=== PATIENT | female | born 1955 | race Caucasian/White ===

== ENCOUNTER → 2016-12-09 | Outpatient (CLI) | payer MEDICARE ==
--- NOTE | 2016-12-09 10:01 | ST Modified Barium Swallow ---
Recommendation - Recommendations Recommendations: 1) Continue current diet. 2) Pills one at a time, pt may benefit from taking pills in puree to aid in pharyngeal transit. 3) Pt reports swallowing deficits occur after taking seroquel at night. Recommend discuss risks and benefits of medication and effects on swallowing. SUMMARY: Pt presents with WFL swallow function. Swallow observed to be safe and effective. No penetration or aspiration observed.Pill observed to stick in valleculae during first swallow with thin liquid however cleared with second swallow of thin. Pt endorsed sensation of pill sticking and clearing. Pt endorses dry mouth which, likely resulting in observed trace residuals of regular solids in valleculae, which cleared with dry swallow, pt endorsed sticking and clearing of residuals. Pt educated on recommendations. Medical Diagnoses - Medical Diagnoses Medical Diagnosis Description & ICD-10 Code(s): dysphagia Other Medical Diagnoses/Co-Morbidities: renal CA, lung CA - ICD-10 Tx Diagnosis Coding (1) Dysphagia, unspecified ICD-10 Code(s): R13.10 - DYSPHAGIA, UNSPECIFIED ST Modified Barium Swallow - General Date: 12/09/16 Referring Physician: Dr Hubbard Risks/Precautions: None Date of Onset: 12/09/06 Reason for Referral: dysphagia - History History obtained from: Patient -: Medical - Pt reports after taking seroquel at night she begins to have difficulty swallowing. Pt reports does not eat at night, however when attempting to swallow saliva can not swallow. Pt denies coughing or choking during meals, reports no recent PNAs or bronchitis, endorses globus sensation in mid chest. Pt states that globus sensation is painful and at times results in pt throwing up food. PMHx: pt reports neck surgery in 2007, endoscopy in 2007 - WNL, tracheostomy as a baby, renal CA, lung CA, and right kidney removal. Medications: levothyroxine, atenolol, oxycodone, quetiapine, gralise, strattera , buproprion, vyvanse, escitalopram, votrient, metoclopramide PRN, prochlorperazine PRN, ondansetron PRN, ammonium, wal-itin Allergies: NKA - Functional Status Prior Functional Status: INDEPENDENT: feeding Current Functional Limitations: feeding - Subjective Patient/caregiver goal(s): safe swallow, r/o aspiration Cognitive-Linguistic Function: WNL Speech Intelligibility: WNL Current Nutritional Means: PO Current PO diet: Regular Current symptoms: c/o Globus sensation - mid chest, other - difficulty swallowing at night after taking seroquel Pain: 0/5 - Objective Assessment: Upright, Left Lateral - Food Trials Used Food trials used: Thin liquids, Pureed, Regular The patient: Was Able to Self Feed - Oral-Motor Skills Dentition: Dentures-Upper, Dentures-Lower, Edentulous Velo-pharyngeal function: Unremarkable Laryngeal Function: Volitional Cough, Volitional Swallow - Assessment Oral prep: Normal Labial closure: Adequate Leakage: None Mastication: Adequate Lingual Movement: Normal Oral stage: Normal for this Procedure - Pharyngeal Stage Initiation of Pharyngeal Stage Reflex: Normal Decreased laryngeal elevation: No Reduced Velopharyngeal Closure: no Reduced pressure generation: No reduced tongue-based retraction: No Pre-swallow pooling in valleculae: None Pre-Swallow pooling in pyriforms: None Reduced Thyro-Hyoid approximation: No Reduced epiglottic excursion: No Reduced pharyngeal peristalsis/contraction: No Post-swallow residulas vallecular: Mild - trace on regular, cleared with pt initiated dry swallow-residuals possibly due to reported dry mouth Post-Swallow residuals in pyriforms: None Reduced Cricopharyngeal opening: No - Fall Risk Assessment Medications/Conditions that increase fall risks include: Antidepressants, sedatives, anti-arrhythmic, diuretic, benzodiazipenes, neuroleptics. BP regulation problems, cardiac problems, balance or gait deficits, neurological problems. Is patient considered at risk for falls: no Fall Risk Actions Taken: No action needed - Behavioral Observations During evaluation process patient: was pleasant, was cooperative, able to answer questions, provided medical history - Treatment / Educational Needs: Treatment/Education Needs: Treatment consisted of patient education on the role of the Speech Pathologist. Patient's plan of care and golas were communicated as well as scheduling and attendance policies. Recommendations for initial home program were shared. Patient demonstrated understanding and verbalized agreement. - Impression/Summary Laryngeal Penetration: No Tracheal Aspiration: no Patient presents with: Normal swallow at eval - safe and effective swallow observed Risk of Aspiration: Minimal - Recommendations NPO: no Solid diet recommendations: Regular Liquid Diet Modification: Thin Strict aspiration precautions: No Pt/Family education and followup with MD: Yes Dysphagia therapy with ANTIQUE REFINISHER: no Recommended techniques: Fully Upright During Meal Supervision: Independent Information, Precautions and Recommendations: Patient (Verbal) - Time Total Time: 20 - Plan of Care Strategies to optimize patient understanding include:: ongoing assessment of educational needs, implementation of educational strategies, and re-education. - - -: Thank you for the opportunity to work with this patient and his/her family. Should you have any questions about this patient's plan or progress, I can be reached at [phone]. Charge G Code? - - -: Yes ST [facility] Impairment Category - Rationale Based On Rationale Based On: Clin Find., Obj Measures - Swallowing Current G8996: CI 1-19% Impaired Goal G8997: CI 1-19% Impaired Discharge G8998: CI 1-19% Impaired
== END ==
LOC: RAD 08:30
PROVIDERS: ATTEND Internal Medicine Pulmonary Disease
DX: R13.10 Dysphagia, unspecified (principal)
CPT/HCPCS: 74230; 92611; G8996; G8997; G8998

== ENCOUNTER → 2017-01-06 | Outpatient (CLI) | payer MEDICARE | LOC: RAD 12:43 | PROVIDERS: ATTEND Internal Medicine | DX: I26.99 Other pulmonary embolism without acute cor pulmonale (principal); R04.2 Hemoptysis | CPT/HCPCS: 71275 ==

== ENCOUNTER → 2017-01-27 | Outpatient (CLI) | payer MEDICARE | LOC: OD 15:13 | PROVIDERS: ATTEND Family Medicine | DX: M79.645 Pain in left finger(s) (principal); M25.572 Pain in left ankle and joints of left foot ==

== ENCOUNTER → 2017-04-06 | Outpatient (CLI) | payer MEDICARE, OTHER | LOC: RAD 09:40 | PROVIDERS: ATTEND Internal Medicine | DX: C18.7 Malignant neoplasm of sigmoid colon (principal) | CPT/HCPCS: 71260 ==

== ENCOUNTER 2017-07-13 07:30 | Emergency (ER) | payer MEDICARE, MEDICAID ==
[2017-07-13 09:14] LABS: ABSOLUTE EOSINOPHILS # (AUTO) 0.1 10^3/uL (0.0-0.6); ABSOLUTE LYMPHOCYTES (AUTO) 1.9 10^3/uL (0.5-4.7); ABSOLUTE MONOCYTES (AUTO) 0.6 10^3/uL (0.1-1.4); ABSOLUTE NEUT (AUTO) 3.8 10^3/uL (1.7-8.2); BASOPHILS % (AUTO) 0.3 % (0-2); HEMATOCRIT 38.7 % (36.0-47.0); HEMOGLOBIN 13.1 g/dL (12.0-15.5); HGB HCT DIFFERENCE 0.6; LYMPHOCYTES % (AUTO) 28.9 % (13-45); MEAN CORPUSCULAR HEMOGLOBIN 31.4 pg (27.0-33.4); MEAN CORPUSCULAR HGB CONC 33.8 g/dL (32.0-36.0); MEAN CORPUSCULAR VOLUME 93 fl (80-97); MONOCYTES % (AUTO) 9.8 % (3-13); RED BLOOD COUNT 4.16 10^6/uL (3.72-5.28); RED CELL DISTRIBUTION WIDTH 14.8 % (11.5-14.0); WHITE BLOOD COUNT 6.4 10^3/uL (4.0-10.5)
[2017-07-13 09:22] LABS: APPEARANCE,URINE SLIGHTLY-CLOUDY; BILIRUBIN,URINE NEGATIVE (NEGATIVE); GLUCOSE, URINE NEGATIVE (NEGATIVE); KETONES,URINE NEGATIVE (NEGATIVE); LEUKOCYTE ESTERASE,URINE NEGATIVE (NEGATIVE); NITRITE,URINE NEGATIVE (NEGATIVE); PROTEIN,URINE NEGATIVE (NEGATIVE); URINE SPECIFIC GRAVITY 1.028; UROBILINOGEN,URINE NEGATIVE mg/dL (<2.0)
[2017-07-13 09:32] LABS: ALANINE AMINOTRANSFERASE 30 U/L (9-52); ALBUMIN 3.3 g/dL (3.5-5.0); ALKALINE PHOSPHATASE 64 U/L (38-126); ANION GAP 11 (5-19); ASPARTATE AMINO TRANSFERASE 42 U/L (14-36); BILIRUBIN,DIRECT 0.4 mg/dL (0.0-0.4); BILIRUBIN,TOTAL 0.4 mg/dL (0.2-1.3); BLOOD UREA NITROGEN 16 mg/dL (7-20); CALCIUM 8.8 mg/dL (8.4-10.2); CARBON DIOXIDE 21 mmol/L (22-30); CHLORIDE 110 mmol/L (98-107); CREATINE KINASE 72 U/L (30-135); CREATININE RESULT 0.96 mg/dL (0.52-1.25); GLUCOSE 122 mg/dL (75-110); POTASSIUM 3.8 mmol/L (3.6-5.0); SODIUM 141.6 mmol/L (137-145); TOTAL PROTEIN 5.8 g/dL (6.3-8.2)
[2017-07-13 09:43] LABS: CREATINE KINASE MB 2.31 ng/mL (<4.55)
[2017-07-13 09:44] LABS: TROPONIN I < 0.012 ng/mL
--- NOTE | 2017-07-13 10:33 | RADIOLOGY REPORT (SQ) ---
EXAM DESCRIPTION: CTA CHEST COMPLETED DATE/TIME: 07/13/2017 10:07 am REASON FOR STUDY: metastatic ca, sob COMPARISON: 04/06/2017 TECHNIQUE: CT scan of the chest performed using helical scanning technique with dynamic intravenous contrast injection. Images reviewed with lung, soft tissue and bone windows. Reconstructed coronal and sagittal MPR images reviewed. Additional 3 dimensional post-processing performed to develop Maximal Intensity Projection images ([place] P). All images stored on PACS. All CT scanners at this facility use dose modulation, iterative reconstruction, and/or weight based d osing when appropriate to reduce radiation dose to as low as reasonably achievable (ALARA). [facility]: Dose Right [facility]: CareDose [facility]: Dose Right [facility]: Teradose 4D [facility]: [employer] CONTRAST TYPE AND DOSE: contrast/concentration: Isovue 370.00 mg/ml; Total Contrast Delivered: 60.0 ml; Total Saline Delivered: 100.0 ml RENAL FUNCTION: Creatinine 0.96 RADIATION DOSE: Up-to-date CT equipment and radiation dose reduction techniques were employed. CTDIv ol: 14.3 - 18.2 mGy. DLP: 2314 mGy-cm. . LIMITATIONS: None. FINDINGS: LUNGS AND PLEURA: New severe bolus emphysematous changes in the left upper lobe. Relative ly stable metastatic foci in the right upper lobe and left lower lobe. Minimal stable nodularity is also seen in the right middle lobe which may be inflammatory. AORTA AND GREAT VESSELS: No aneurysm or dissection. HEART: No pericardial effusion. PULMONARY ARTERIES: No emboli visualized in the main pulmonary arteries or the segmental branches. T here is some narrowing of the left upper lobe pulmonary artery is related to hilar adenopathy. HILAR AND MEDIASTINAL STRUCTURES: Worsening mediastinal and hilar adenopathy. HARDWARE: None in the chest. UPPER ABDOMEN: See abdomen CT report. THYROID AND OTHER SOFT TISSUES: No masses. No adenopathy. BONES: No acute or significant finding. 3D MIPS: Confirm above findings. OTHER: No other significant finding. IMPRESSION: 1. No evidence of pulmonary embolus. 2. New severe bullous edematous changes in the left upper lobe. 3. Stable lung metastases. 4. Worsening mediastinal and hilar adenopathy with associated narrowing of the left upper lobe pulmo nary arteries. TECHNICAL DOCUMENTATION: JOB ID: [id number] Quality ID # [id number]: Final reports with documentation of one or more dose reduction techniques (e.g., Au tomated exposure control, adjustment of the mA and/or kV according to patient size, use of iterative reconstruction technique) 2010 [employer]- All Rights Reserved
--- NOTE | 2017-07-13 10:36 | RADIOLOGY REPORT (SQ) ---
EXAM DESCRIPTION: CT ABD/PELVIS WITH IV ONLY COMPLETED DATE/TIME: 07/13/2017 10:07 am REASON FOR STUDY: metastatic kidney ca COMPARISON: None. TECHNIQUE: CT scan of the abdomen and pelvis performed using helical scanning technique with dynamic intravenous contrast injection. No oral contrast. Images reviewed with lung, soft tissue, and bone windows. Reconstructed coronal and sagittal MPR images reviewed. Delayed images for evaluation of the urinary system also acquired. All images stored on PACS. All CT scanners at this facility use dose modulation, iterative reconstruction, and/or weight based d osing when appropriate to reduce radiation dose to as low as reasonably achievable (ALARA). [facility]: Dose Right [facility]: CareDose [facility]: Dose Right [facility]: Teradose 4D [facility]: [employer] CONTRAST TYPE AND DOSE: See separate chest CT report. RENAL FUNCTION: BUN 16 creatinine 1.0 RADIATION DOSE: . LIMITATIONS: Artifact from lower lumbar spinal fusion. FINDINGS: LOWER CHEST: See separate report of the CT of the chest. LIVER: Normal size. No masses. No dilated ducts. SPLEEN: Old granulomatous disease. PANCREAS: No masses. No significant calcifications. No adjacent inflammation or peripancreatic fluid collections. Pancreatic duct not dilated. GALLBLADDER: No identified stones by CT criteria. No inflammatory changes to suggest cholecystitis. ADRENAL GLANDS: No significant masses or asymmetry. RIGHT KIDNEY AND URETER: Surgically absent. LEFT KIDNEY AND URETER: No solid masses. 2 mm stone lower pole. No hydronephrosis or hydroureter. AORTA AND VESSELS: No aneurysm. RETROPERITONEUM: No retroperitoneal adenopathy, hemorrhage or masses. BOWEL AND PERITONEAL CAVITY: No masses or inflammatory changes. No free fluid or peritoneal masses. APPENDIX: Surgically absent. PELVIS: No mass. No free fluid. Normal bladder. ABDOMINAL WALL: No masses. No hernias. BONES: No acute findings. OTHER: No other significant finding. IMPRESSION: 1. Nonobstructing stone left kidney status post right nephrectomy. 2. No acute findings in the abdomen or pelvis. TECHNICAL DOCUMENTATION: JOB ID: [id number] Quality ID # [id number]: Final reports with documentation of one or more dose reduction techniques (e.g., Au tomated exposure control, adjustment of the mA and/or kV according to patient size, use of iterative reconstruction technique) 2010 [employer]- All Rights Reserved
[2017-07-13] MEDS ORDERED: LORAZEPAM INJ 2 MG/1 ML VIAL IV ONE (11:05)
--- NOTE | 2017-07-13 11:07 | ER Document Report ---
ED General - General Chief Complaint: Breathing Difficulty Stated Complaint: DIFFICULT BREATHING Time Seen by Provider: 07/13/17 07:48 Mode of Arrival: Ambulatory Information source: Patient Notes: 61-year-old female history of lung CA who is on the recent flights presents with complaints of shortness of breath. Patient notes the shortness breath has been ongoing for a few days denies any fevers or chills denies any nausea or vomiting. Patient notes she is extremely anxious. Patient went to the emergency department 2 days ago but refused to have a CTA performed at that time because she was supposed to have a CT done here and wanted her physicians have access to the imaging. Patient denies any productive cough patient notes she is extremely anxious recently TRAVEL OUTSIDE OF THE [place] IN LAST 30 DAYS: No - HPI Onset: Other - 2 day duration Onset/Duration: Persistent Quality of pain: No pain Severity: Mild Pain Level: Denies Associated symptoms: Shortness of breath Exacerbated by: Denies Relieved by: Denies Similar symptoms previously: Yes Recently seen / treated by doctor: Yes - Related Data Allergies/Adverse Reactions: codeine Allergy (Verified 07/13/17 07:36) erythromycin base Allergy (Verified 07/13/17 07:36) Penicillins Allergy (Verified 07/13/17 07:36) Home Medications: Current Home Medications Albuterol Sulfate [Ventolin Hfa] 2 puff NEB PRN PRN 07/13/17 [History] Atenolol [Atenolol] 50 mg PO DAILY 07/13/17 [History] Atomoxetine HCl [Strattera] 80 mg PO DAILY 07/13/17 [History] Benzonatate 200 mg PO TID 07/13/17 [History] Bupropion HCl [Bupropion HCl ER] 200 mg PO DAILY 07/13/17 [History] Escitalopram Oxalate 10 mg PO DAILY 07/13/17 [History] Escitalopram Oxalate 10 mg PO DAILY 07/13/17 [History] Gabapentin [Gralise] 1,200 mg PO DAILY 07/13/17 [History] Glycopyrrolate/Formoterol Fum [Bevespi Aerosphere Inhaler] 9 mcg NEB TID [History] Levothyroxine Sodium 200 mcg PO DAILY 07/13/17 [History] Lisdexamfetamine Dimesylate [Vyvanse] 70 mg PO DAILY 07/13/17 [History] Loratadine 10 mg PO DAILY 07/13/17 [History] Meloxicam 15 mg PO DAILY 07/13/17 [History] Metoclopramide HCl 5 mg PO PRN PRN 07/13/17 [History] Ondansetron [Ondansetron Odt] 8 mg PO PRN PRN 07/13/17 [History] Pazopanib HCl [Votrient] 800 mg PO DAILY 07/13/17 [History] Quetiapine Fumarate [Quetiapine Fumarate ER] 100 mg PO DAILY 07/13/17 [History] Past Medical History - Social History Smoking Status: Former Smoker Cigarette use (# per day): No Chew tobacco use (# tins/day): No Smoking Education Provided: No Frequency of alcohol use: None Drug Abuse: None Family History: Reviewed & Not Pertinent Renal/ Medical History: Denies: Hx Peritoneal Dialysis Review of Systems - Review of Systems Notes: REVIEW OF SYSTEMS: CONSTITUTIONAL : Denies fever, chills, or sweats. Denies recent illness. EENT: Denies eye, ear, throat, or mouth pain or symptoms. Denies nasal or sinus congestion or discharge. Denies throat, tongue, or mouth swelling or difficulty swallowing. CARDIOVASCULAR: Denies chest pain. Denies palpitations or racing or irregular heart beat. Denies ankle edema. RESPIRATORY: Admits to shortness of breath difficulty breathing. GASTROINTESTINAL: Denies abdominal pain or distention. Denies nausea, vomiting , or diarrhea. Denies blood in vomitus, stools, or per rectum. Denies black, tarry stools. Denies constipation. GENITOURINARY: Denies difficulty urinating, painful urination, burning, frequency, blood in urine, or discharge. FEMALE GENITOURINARY: Denies vaginal bleeding, heavy or abnormal periods, irregular periods. Denies vaginal discharge or odor. MUSCULOSKELETAL: Denies back or neck pain or stiffness. Denies joint pain or swelling. SKIN: Denies rash, lesions or sores. HEMATOLOGIC : Denies easy bruising or bleeding. LYMPHATIC: Denies swollen, enlarged glands. NEUROLOGICAL: Denies confusion or altered mental status. Denies passing out or loss of consciousness. Denies dizziness or lightheadedness. Denies headache. Denies weakness or paralysis or loss of use of either side. Denies problems with gait or speech. Denies sensory loss, numbness, or tingling. Denies seizures. PSYCHIATRIC: Admits to anxiety ALL OTHER SYSTEMS REVIEWED AND NEGATIVE. PHYSICAL EXAMINATION: GENERAL: Well-appearing, well-nourished and in no acute distress. HEAD: Atraumatic, normocephalic. EYES: Pupils equal round and reactive to light, extraocular movements intact, conjunctiva are normal. ENT: Nares patent, oropharynx clear without exudates. Moist mucous membranes. NECK: Normal range of motion, supple without lymphadenopathy LUNGS: Breath sounds clear to auscultation bilaterally and equal. No wheezes rales or rhonchi. HEART: Regular rate and rhythm without murmurs ABDOMEN: Soft, nontender, nondistended abdomen. No guarding, no rebound. No masses appreciated. Female : deferred Musculoskeletal: Normal range of motion, no pitting or edema. No cyanosis. NEUROLOGICAL: Cranial nerves grossly intact. Normal speech, normal gait. Normal sensory, motor exams PSYCH: Extremely anxious rapid speech SKIN: Warm, Dry, normal turgor, no rashes or lesions noted. Dictation was performed using [employer] voice recognition software Physical Exam - Vital signs Vitals: Temp Pulse Resp BP Pulse Ox 98.5 F 83 21 H 145/97 H 94 07/13/17 07:31 07/13/17 07:31 07/13/17 07:31 07/13/17 07:31 07/13/17 07:31 Course - Re-evaluation Re-evalutation: 07/13/17 14:56 Physical examination did not note any acute abnormality except for patient being quite anxious. I am extremely concerned about a pulmonary emboli therefore an emergent CT was performed as well as a CT of the abdomen pelvis at the patient's request. There is no change in her metastasis, there is no pulmonary emboli noted. I believe the patient's symptoms may be secondary to anxiety at this point. She will be given Ativan and is otherwise well- appearing no distress Patient has been instructed to follow-up with her physician immediately for reevaluation or to return if there are any other concerns After performing a Medical Screening Examination, I estimate there is LOW risk for RUPTURED ESOPHAGUS, PNEUMOTHORAX, PULMONARY EMBOLISM, ACUTE CORONARY SYNDROME, OR THORACIC AORTIC DISSECTION, thus I consider the discharge disposition reasonable. I have reevaluated this patient multiple times and no significant life threatening changes are noted. The patient and I have discussed the diagnosis and risks, and we agree with discharging home with close follow-up. We also discussed returning to the Emergency Department immediately if new or worsening symptoms occur. We have discussed the symptoms which are most concerning (e.g., bloody sputum, worsening pain or shortness of breath) that necessitate immediate return. - Vital Signs Vital signs: Temp Pulse Resp BP Pulse Ox 98.5 F 83 17 132/86 H 93 07/13/17 07:31 07/13/17 07:31 07/13/17 11:23 07/13/17 11:23 07/13/17 11:23 - Laboratory Result Diagrams: 07/13/17 08:45 07/13/17 08:45 Laboratory results interpreted by me: 07/13/17 07/13/17 08:45 08:45 RDW 14.8 H Chloride 110 H Carbon Dioxide 21 L Est GFR (Non-Af Amer) 59 L Glucose 122 H AST 42 H Total Protein 5.8 L Albumin 3.3 L - Diagnostic Test Radiology reviewed: Image reviewed, Reports reviewed - No pulmonary emboli - EKG Interpretation by Me EKG shows normal: Sinus rhythm, [place], Intervals, QRS Complexes Discharge - Discharge Clinical Impression: Anxiety, SOB (shortness of breath) Lung cancer Qualifiers: Laterality: unspecified laterality Lung location: unspecified part of lung Qualified Code(s): C34.90 - Malignant neoplasm of unspecified part of unspecified bronchus or lung Condition: Stable Disposition: HOME, SELF-CARE Instructions: Dyspnea, Nonspecific ([facility]) Prescriptions: Lorazepam [Ativan 1 mg Tablet] 1 mg PO Q4 PRN #20 tab PRN Reason: Referrals: LISHA SEGOVIA DO [Primary Care Provider] - Follow up tomorrow
[2017-07-13 11:36] VITALS: BP 132/86
--- NOTE | 2017-07-13 12:37 | EKG REPORT ---
SEVERITY:- ABNORMAL ECG - SINUS RHYTHM ABNRM R PROG, CONSIDER ASMI OR LEAD PLACEMENT NONSPECIFIC T ABNORMALITIES, INFERIOR LEADS : Confirmed by: Costa Castellanos MD 13-Jul-2017 12:36:23
== END 2017-07-13 11:39 | disposition home or self-care (01) ==
LOC: ER 07:30
DX: C34.90 Malignant neoplasm of unspecified part of unspecified bronchus or lung (principal); F41.9 Anxiety disorder, unspecified; R06.02 Shortness of breath; Z87.891 Personal history of nicotine dependence; Z79.899 Other long term (current) drug therapy
CPT/HCPCS: 93005; 99285; 96374; 36415; 87040; 82553; 82550; 85025; 81025; 80053; 81001; 84484; 83880; 71275; 74177; 93010; J2060

== ENCOUNTER 2017-07-21 11:07 | Outpatient (CLI) | payer MEDICARE, MEDICAID ==
[2017-07-21] MEDS ORDERED: NORMAL SALINE 250 ML IV PRN (12:40)
[2017-07-21] MEDS ORDERED: NIVOLUMAB 200 MG, NIVOLUMAB 40 MG in NORMAL SALINE 100 ML IV PRN (12:44)
[2017-07-21 14:25] VITALS: BP 105/65
== END 2017-07-21 16:01 | disposition home or self-care (01) ==
LOC: II 11:07 → 5TH 14:11 → II 16:01
PROVIDERS: ATTEND Internal Medicine
PROC: 3E0330M Introduction of Antineoplastic, Monoclonal Antibody, into Peripheral Vein, Percutaneous Approach (ICD-10-PCS; principal; 2017-07-21)
DX: Z51.11 Encounter for antineoplastic chemotherapy (principal); C64.1 Malignant neoplasm of right kidney, except renal pelvis
CPT/HCPCS: 96413; 70553; A9577; J9299 ×2

== ENCOUNTER → 2017-07-21 | Outpatient (CLI) | payer MEDICAID, MEDICARE ==
--- NOTE | 2017-07-21 15:56 | RADIOLOGY REPORT (SQ) ---
EXAM DESCRIPTION: MRI HEAD COMBO COMPLETED DATE/TIME: 07/21/2017 11:01 am REASON FOR STUDY: KIDNEY CA (C64.1) C64.1 MALIGNANT NEOPLASM OF RIGHT KIDNEY, EXCEPT RENAL PELVI COMPARISON: CT chest abdomen and pelvis 07/13/2017, CT chest 04/06/2017, and 01/06/2017 TECHNIQUE: Multiplanar imaging includes noncontrasted T1, T2, FLAIR, diffusion with ADC map and post gadolinium contrast T1 sequences. Images stored on PACS. CONTRAST TYPE AND DOSE: 15 mL Multihance. RENAL FUNCTION: GFR > 60. LIMITATIONS: None. FINDINGS: ANATOMY: Pituitary fossa normal. On axial T2 image 11, a 4 mm aneurysm projects off the l eft parasellar carotid medially. This requires further evaluation with [place] MRA exam. Dr. Mcnulty notified of this finding, 1545 hours 07/21/2017. There is a benign venous angioma in the righ t occipital white matter, of no clinical significance CSF SPACES: Normal in size and contour. No hemorrhage. CEREBRUM: Sulci and gyri normal in size and contour. Normal white matter signal on FLAIR imaging. No evidence of hemorrhage, mass, or extraaxial fluid collection. No abnormal enhancement post contrast. POSTERIOR FOSSA: No signal alteration. No hemorrhage. No edema, masses, or mass effect. Internal soraida tory canals, cerebellopontine angles, mastoids normal. No enhancing lesions. No abnormal enhancement post contrast. DIFFUSION IMAGING: Negative for acute or subacute infarction. ORBITS: No masses. Globes normal. PARANASAL SINUSES: No fluid levels. Mucosa normal. OTHER: No other significant finding. 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 EVIDENCE OF ACUTE STROKE: NO. TECHNICAL DOCUMENTATION: JOB ID: [id number]- All Rights Reserved
== END ==
LOC: RAD 09:12
PROVIDERS: ATTEND Internal Medicine
DX: C64.1 Malignant neoplasm of right kidney, except renal pelvis (principal)
CPT/HCPCS: 70553; A9577

== ENCOUNTER 2017-07-23 19:31 | Emergency (ER) | payer MEDICARE, MEDICAID ==
[2017-07-23] MEDS ORDERED: METHYLPREDNISOLONE INJ 125 MG/2 ML SDV IV ONE (19:39)
[2017-07-23] MEDS ORDERED: IPRATROPIUM/ALBUTEROL 0.5-2.5 MG/3 ML AMPUL NEB ONE (19:39)
[2017-07-23] MEDS ORDERED: ALBUTEROL SULFATE 0.083% NEB 2.5 MG/3 ML AMPUL NEB SCH (19:54)
[2017-07-23 20:05] LABS: ABSOLUTE EOSINOPHILS # (AUTO) 0.3 10^3/uL (0.0-0.6); ABSOLUTE LYMPHOCYTES (AUTO) 1.3 10^3/uL (0.5-4.7); ABSOLUTE MONOCYTES (AUTO) 0.8 10^3/uL (0.1-1.4); ABSOLUTE NEUT (AUTO) 5.1 10^3/uL (1.7-8.2); BASOPHILS % (AUTO) 0.5 % (0-2); EOSINOPHILS % (AUTO) 3.6 % (0-6); HEMOGLOBIN 13.6 g/dL (12.0-15.5); HGB HCT DIFFERENCE -1.2; LYMPHOCYTES % (AUTO) 17.1 % (13-45); MEAN CORPUSCULAR HEMOGLOBIN 30.6 pg (27.0-33.4); MEAN CORPUSCULAR HGB CONC 32.3 g/dL (32.0-36.0); MEAN CORPUSCULAR VOLUME 95 fl (80-97); MONOCYTES % (AUTO) 10.9 % (3-13); RED BLOOD COUNT 4.43 10^6/uL (3.72-5.28); SEGMENTED NEUTROPHILS % (AUTO) 67.9 % (42-78); WHITE BLOOD COUNT 7.5 10^3/uL (4.0-10.5)
[2017-07-23 20:22] LABS: ALANINE AMINOTRANSFERASE 25 U/L (9-52); ALBUMIN 3.7 g/dL (3.5-5.0); ALKALINE PHOSPHATASE 65 U/L (38-126); ANION GAP 9 (5-19); ASPARTATE AMINO TRANSFERASE 44 U/L (14-36); BILIRUBIN,DIRECT 0.4 mg/dL (0.0-0.4); BILIRUBIN,TOTAL 0.5 mg/dL (0.2-1.3); BLOOD UREA NITROGEN 15 mg/dL (7-20); CALCIUM 9.5 mg/dL (8.4-10.2); CARBON DIOXIDE 31 mmol/L (22-30); CHLORIDE 100 mmol/L (98-107); CREATINE KINASE 25 U/L (30-135); CREATININE RESULT 0.83 mg/dL (0.52-1.25); GLUCOSE 119 mg/dL (75-110); POTASSIUM 4.9 mmol/L (3.6-5.0); SODIUM 139.8 mmol/L (137-145); TOTAL PROTEIN 6.6 g/dL (6.3-8.2)
[2017-07-23] MEDS ORDERED: DIAZEPAM INJ 10 MG/2 ML DISP.SYRIN IV ONE (20:26)
--- NOTE | 2017-07-23 20:27 | ER Document Report ---
ED General - General Chief Complaint: Shortness Of Breath Stated Complaint: CHEST PAIN Time Seen by Provider: 07/23/17 19:51 Notes: Patient is a unfortunate 61-year-old female with a history of an unspecified renal cancer with metastasis to the lungs who presents with 2 weeks of shortness of breath unchanged today. Patient was seen in the emergency department on the 14th of this month and had a CTA of her chest abdomen pelvis at that time she did not demonstrate any acute pulmonary emboli but did note new emphysematous changes. States that since that time she has been started on supplemental home oxygen which she states does not always resolve her shortness of breath. Notes that her episodes of shortness of breath are worse at night and often wake her up from sleep. She has not noted that anything seems to improve or worsen her shortness of breath other than anxiety which she states does seem to worsen it. She has been following with her oncologist regarding these concerns. At time of my assessment she does admit to feeling severely anxious but states that her work of breathing is at baseline. She denies any chest pain. No hemoptysis, unilateral leg swelling or syncope. TRAVEL OUTSIDE OF THE [place] IN LAST 30 DAYS: No - Related Data Allergies/Adverse Reactions: codeine Allergy (Verified 07/13/17 07:36) erythromycin base Allergy (Verified 07/13/17 07:36) Penicillins Allergy (Verified 07/13/17 07:36) Past Medical History - General Information source: Patient - Social History Smoking Status: Former Smoker Frequency of alcohol use: None Drug Abuse: None Lives with: Family Family History: Reviewed & Not Pertinent Renal/ Medical History: Denies: Hx Peritoneal Dialysis Review of Systems - Review of Systems Notes: Constitutional: Negative for fever. HENT: Negative for sore throat. Eyes: Negative for visual changes. Cardiovascular: Negative for chest pain. Respiratory: Positive for shortness of breath. Gastrointestinal: Negative for abdominal pain, vomiting or diarrhea. Genitourinary: Negative for dysuria. Musculoskeletal: Negative for back pain. Skin: Negative for rash. Neurological: Negative for headaches, weakness or numbness. 10 point ROS negative except as marked above and in HPI. Physical Exam - Vital signs Vitals: Resp Pulse Ox 23 H 95 07/23/17 20:05 07/23/17 20:05 Interpretation: Tachypneic Notes: PHYSICAL EXAMINATION: GENERAL: Appears chronically ill, older than stated age but in no acute distress HEAD: Atraumatic, normocephalic. EYES: Pupils equal round and reactive to light, extraocular movements intact, sclera anicteric, conjunctiva are normal. ENT: nares patent, oropharynx clear without exudates. Moist mucous membranes. NECK: Normal range of motion, supple without lymphadenopathy LUNGS: Breath sounds clear to auscultation bilaterally and equal. No wheezes rales or rhonchi. HEART: Regular rate and rhythm without murmurs ABDOMEN: Soft, nontender, normoactive bowel sounds. No guarding, no rebound. No masses appreciated. EXTREMITIES: Normal range of motion, no pitting or edema. No cyanosis. NEUROLOGICAL: No focal neurological deficits. Moves all extremities spontaneously and on command. PSYCH: Normal mood, normal affect. SKIN: Warm, Dry, normal turgor, no rashes or lesions noted. Course - Re-evaluation Re-evalutation: 07/23/17 20:26 Patient with a unfortunate history of metastatic kidney cancer to the lungs with bilateral no metastases currently on up to go who presents with 2 weeks of continuous shortness of breath unchanged today. Patient was seen on the 14 of this month, had a CT of her chest and at that time which did not demonstrate any evidence of acute pulmonary emboli. She states her symptoms are no different today than at that time I do not believe repeat CT imaging is appropriate at this time given that the study was performed 10 days ago. She denies any significant chest pain her clinical history is likewise not consistent with ACS, acute thoracic aortic dissection or aneurysmal rupture. Patient does admit to feeling severely anxious and did have improvement of her symptoms and her most recent visit to the emergency department with IV lorazepam. Will obtain chest x-ray, basic labs, provide anxiolysis and reassess 07/23/17 22:14 Patient's symptoms have resolved after receiving Valium. Chest x-ray unchanged. Labs unremarkable. At this time will discharge with return precautions and follow-up recommendations. Verbal discharge instructions given a the bedside and opportunity for questions given. Medication warnings reviewed. Patient is in agreement with this plan and has verbalized understanding of return precautions and the need for primary care follow-up in the next 24-72 hours. - Vital Signs Vital signs: Temp Pulse Resp BP Pulse Ox 95 18 126/99 H 98 07/23/17 23:54 07/23/17 23:54 07/23/17 23:54 07/23/17 23:54 - Laboratory Result Diagrams: 07/23/17 19:50 07/23/17 19:50 Laboratory results interpreted by me: 07/23/17 07/23/17 19:50 19:50 RDW 15.0 H Carbon Dioxide 31 H Glucose 119 H AST 44 H Creatine Kinase 25 L - Diagnostic Test Radiology reviewed: Image reviewed, Reports reviewed Radiology results interpreted by me: 07/23/17 22:15 Chest x-ray: No acute changes. Findings consistent with emphysema. - EKG Interpretation by Me Additional EKG results interpreted by me: 07/24/17 03:22 Normal sinus rhythm. Rate 96. No ST elevations or depressions. QTC is 440. Discharge - Discharge Clinical Impression: Shortness of breath Condition: Good Disposition: HOME, SELF-CARE Additional Instructions: Discontinue the Ativan. You may start Valium 5 mg at night in addition to the Seroquel you take. Your labs and chest x-ray are unchanged from her prior visit. Please follow-up with your primary doctor regarding today's concerns. Return to the emergency department for worsening shortness of breath, chest pain , passing out, or any other symptoms that are worrisome to you. Prescriptions: Diazepam [Valium 5 mg Tablet] 5 mg PO QHS PRN #15 tablet PRN Reason: Referrals: LISHA SEGOVIA DO [Primary Care Provider] - Follow up as needed
[2017-07-23 20:34] LABS: TROPONIN I < 0.012 ng/mL
--- NOTE | 2017-07-23 21:23 | RADIOLOGY REPORT (SQ) ---
EXAM DESCRIPTION: CHEST SINGLE VIEW COMPLETED DATE/TIME: 07/23/2017 8:31 pm REASON FOR STUDY: shortness of breath COMPARISON: 07/13/2017 EXAM PARAMETERS: NUMBER OF VIEWS: One view. TECHNIQUE: Single frontal radiographic view of the chest acquired. RADIATION DOSE: NA LIMITATIONS: None. FINDINGS: LUNGS AND PLEURA: Similar appearance of the left lung with large bullous emphysematous nicole nges in the upper lobe. Similar left basilar 4.7 cm mass. Trace right pleural effusion. Right lung appears otherwise clear. No left pleural effusion or pneumothorax. MEDIASTINUM AND HILAR STRUCTURES: Stable left hilar fullness. HEART AND VASCULAR STRUCTURES: Stable. BONES: No acute findings. HARDWARE: None in the chest. OTHER: No other significant finding. IMPRESSION: Similar appearance of the left lung with large bullous emphysematous changes in the uppe r lobe. Similar left basilar 4.7 cm mass. Trace right pleural effusion. TECHNICAL DOCUMENTATION: JOB ID: [id number]
[2017-07-23 21:29] LABS: APPEARANCE,URINE CLEAR; BILIRUBIN,URINE NEGATIVE (NEGATIVE); GLUCOSE, URINE NEGATIVE (NEGATIVE); KETONES,URINE NEGATIVE (NEGATIVE); LEUKOCYTE ESTERASE,URINE NEGATIVE (NEGATIVE); NITRITE,URINE NEGATIVE (NEGATIVE); PROTEIN,URINE NEGATIVE (NEGATIVE); URINE SPECIFIC GRAVITY 1.011; UROBILINOGEN,URINE NEGATIVE mg/dL (<2.0)
--- NOTE | 2017-07-23 21:30 | EKG REPORT ---
SEVERITY:- BORDERLINE ECG - SINUS RHYTHM BORDERLINE T ABNORMALITIES, INFERIOR LEADS : Confirmed by: Hakan Alvarez 23-Jul-2017 21:29:36
[2017-07-23 23:56] VITALS: BP 126/99
== END 2017-07-23 23:35 | disposition home or self-care (01) ==
LOC: ER 19:31
DX: R06.02 Shortness of breath (principal); Z87.891 Personal history of nicotine dependence
CPT/HCPCS: 93005; 94640; 99285; 96374; 36415; 82553; 82550; 85025; 80053; 81001; 84484; 83880; 71010; 93010; J3360; J2930; A9270 ×2; J7620

== ENCOUNTER 2017-07-26 08:09 | Emergency (ER) | payer MEDICARE, MEDICAID ==
--- NOTE | 2017-07-26 09:30 | RADIOLOGY REPORT (SQ) ---
EXAM DESCRIPTION: CHEST SINGLE VIEW COMPLETED DATE/TIME: 07/26/2017 9:15 am REASON FOR STUDY: sob COMPARISON: 07/23/2017 EXAM PARAMETERS: NUMBER OF VIEWS: One view. TECHNIQUE: Single frontal radiographic view of the chest acquired. RADIATION DOSE: NA LIMITATIONS: None. FINDINGS: LUNGS AND PLEURA: Stable appearance of the left lung. Trace right pleural effusion. No o bvious pneumothorax. MEDIASTINUM AND HILAR STRUCTURES: No masses. Contour normal. HEART AND VASCULAR STRUCTURES: Heart normal in size. Normal vasculature. BONES: No acute findings. HARDWARE: None in the chest. OTHER: No other significant finding. IMPRESSION: Stable appearance. TECHNICAL DOCUMENTATION: JOB ID: [id number]
[2017-07-26 09:53] LABS: ANION GAP 11 (5-19); BLOOD UREA NITROGEN 19 mg/dL (7-20); CALCIUM 9.5 mg/dL (8.4-10.2); CARBON DIOXIDE 29 mmol/L (22-30); CHLORIDE 99 mmol/L (98-107); CREATININE RESULT 0.93 mg/dL (0.52-1.25); GLUCOSE 107 mg/dL (75-110); POTASSIUM 4.2 mmol/L (3.6-5.0); SODIUM 138.8 mmol/L (137-145)
[2017-07-26 09:55] LABS: ABSOLUTE EOSINOPHILS # (AUTO) 0.1 10^3/uL (0.0-0.6); ABSOLUTE LYMPHOCYTES (AUTO) 1.3 10^3/uL (0.5-4.7); ABSOLUTE MONOCYTES (AUTO) 1.1 10^3/uL (0.1-1.4); BASOPHILS % (AUTO) 0.2 % (0-2); CREATINE KINASE < 20 U/L (30-135); EOSINOPHILS % (AUTO) 1.6 % (0-6); HEMATOCRIT 39.2 % (36.0-47.0); HEMOGLOBIN 13.1 g/dL (12.0-15.5); HGB HCT DIFFERENCE 0.1; LYMPHOCYTES % (AUTO) 14.8 % (13-45); MEAN CORPUSCULAR HEMOGLOBIN 31.1 pg (27.0-33.4); MEAN CORPUSCULAR HGB CONC 33.5 g/dL (32.0-36.0); MEAN CORPUSCULAR VOLUME 93 fl (80-97); RED BLOOD COUNT 4.22 10^6/uL (3.72-5.28); RED CELL DISTRIBUTION WIDTH 14.5 % (11.5-14.0); SEGMENTED NEUTROPHILS % (AUTO) 70.4 % (42-78); WHITE BLOOD COUNT 8.5 10^3/uL (4.0-10.5)
[2017-07-26 10:06] LABS: TROPONIN I < 0.012 ng/mL
[2017-07-26 10:08] LABS: ARTERIAL BLOOD BASE EXCESS 5.2 mmol/L
--- NOTE | 2017-07-26 11:09 | ER Document Report ---
ED Respiratory Problem - General Information source: Patient TRAVEL OUTSIDE OF THE [place] IN LAST 30 DAYS: No - HPI Patient complains to provider of: Short of breath Associated symptoms: Other - see above <KARELY ALFARO - Last Filed: 07/26/17 13:07> <VENECIA TORRES - Last Filed: 07/26/17 13:49> - General Chief Complaint: Breathing Difficulty Stated Complaint: DIFFICULTY BREATHING Time Seen by Provider: 07/26/17 08:37 Notes: Patient is a 61 year old female who presents to the ED with complaints of worsening SOB and anxiety. Patient has a history of renal cell carcinoma and started a new chemo on Thursday. Patient states she felt okay after taking it. Patient states she is having SOB that is wrose along with some anxiety. She feels like she cant breath. She is followed by Dr. Vega. Patient was on Ativan and was given Valium to take for her anxiety. Patient has a deviated septum and she is afraid this is affecting her shortness of breath. Patient does have COPD. (KARELY ALFARO) - Related Data Allergies/Adverse Reactions: codeine Allergy (Verified 07/26/17 08:14) erythromycin base Allergy (Verified 07/26/17 08:14) Penicillins Allergy (Verified 07/26/17 08:14) Past Medical History - General Information source: Patient - Social History Smoking Status: Former Smoker Chew tobacco use (# tins/day): No Frequency of alcohol use: None Drug Abuse: None Family History: Reviewed & Not Pertinent Patient has suicidal ideation: No Patient has homicidal ideation: No - Past Medical History Cardiac Medical History: Reports: Hx Hypertension Pulmonary Medical History: Reports: Hx COPD Renal/ Medical History: Denies: Hx Peritoneal Dialysis Past Surgical History: Reports: Hx Abdominal Surgery - Immunizations Hx Diphtheria, Pertussis, Tetanus Vaccination: No <KARELY ALFARO - Last Filed: 07/26/17 13:07> Review of Systems - Review of Systems Constitutional: No symptoms reported EENT: No symptoms reported Cardiovascular: No symptoms reported Respiratory: See HPI, Short of breath Gastrointestinal: No symptoms reported Genitourinary: No symptoms reported Female Genitourinary: No symptoms reported Musculoskeletal: No symptoms reported Skin: No symptoms reported Hematologic/Lymphatic: No symptoms reported Neurological/Psychological: See HPI, Anxiety <KARELY ALFARO - Last Filed: 07/26/17 13:07> Physical Exam - General General appearance: Anxious - HEENT Head: Normocephalic, Atraumatic Eyes: Normal Extraocular movements intact: Yes Pupils: PERRL - Respiratory Respiratory status: No respiratory distress Breath sounds: Decreased air movement - diminished bilatearlly - Cardiovascular Rhythm: Regular Heart sounds: Normal auscultation Murmur: No - Abdominal Inspection: Normal Distension: No distension Tenderness: Nontender - Back Back: Normal - Extremities General upper extremity: Normal inspection, Normal ROM General lower extremity: Normal inspection, Normal ROM - Neurological Neuro grossly intact: Yes - Psychological Associated symptoms: Anxious - Skin Skin Temperature: Warm Skin Moisture: Dry Skin Color: Normal <KARELY ALFARO - Last Filed: 07/26/17 13:07> - Vital signs Vitals: Temp Pulse Resp BP Pulse Ox 97.9 F 104 H 20 93/60 L 87 L 07/26/17 08:15 07/26/17 08:15 07/26/17 08:15 07/26/17 08:15 07/26/17 08:15 Course - Laboratory Result Diagrams: 07/26/17 09:31 07/26/17 09:31 <KARELY ALFARO - Last Filed: 07/26/17 13:07> - Laboratory Result Diagrams: 07/26/17 09:31 07/26/17 09:31 <VENECIA TORRES - Last Filed: 07/26/17 13:49> - Re-evaluation Re-evalutation: 07/26/17 12:54 Patient presents emergency room chiefly difficulty breathing. Patient has stage IV renal cell carcinoma which has metastasized to her lung. In addition to that they have an MRA ordered for tomorrow to see if it is metastasized to her brain. She is chronically on oxygen at home. She has been seen and evaluated in the emergency department a few times and is having anxiety associated with her difficulty breathing. She sees Dr. Aidan Gomez is full code and is undergoing treatment. They did a CT a of her chest the other day which showed lymphadenopathy. Patient takes Valium in the evening and does well with that until it wears off and then she wakes up in panics again. Daughter is at bedside stating that it has been difficult in the last couple of weeks and she is trying to live with her and her family and she is as well. The mother cannot get up and down the stairs in their house is not conducive to that type of lifestyle. They are looking for a one-story house tomorrow night that she may be able to rent. On examination the patient is anxious she is not hypoxic on 3 L of O2 at my assessment was 91-94% lungs are diminished bilaterally no expiratory wheeze she is afebrile. Chest x-ray negative for acute pathology labs are stable I did give her a dose of 0.5 oral Ativan. She is discharged to have her MRI of the brain tomorrow follow-up with Dr. Aidan buchanan on Thursday and discussed reasons for ED return sooner (VENECIA TORRES) - Vital Signs Vital signs: Temp Pulse Resp BP Pulse Ox 97.6 F 91 20 105/73 90 L 07/26/17 13:05 07/26/17 13:05 07/26/17 13:05 07/26/17 13:05 07/26/17 13:05 - Laboratory Laboratory results interpreted by me: 07/26/17 07/26/17 07/26/17 09:31 09:31 09:55 RDW 14.5 H Carbonic Acid 1.43 H ABG pCO2 47.5 H ABG pO2 73.4 L ABG HCO3 30.5 H ABG Total CO2 31.9 H Creatine Kinase < 20 L Discharge <KARELY ALFARO - Last Filed: 07/26/17 13:07> <VENECIA TORRES - Last Filed: 07/26/17 13:49> - Discharge Clinical Impression: COPD exacerbation Condition: Stable Disposition: HOME, SELF-CARE Additional Instructions: Chronic Obstructive Lung Disease You have chronic obstructive lung disease (COPD). The symptoms come from emphysema (damage to small airways, with trapping of air in large sacks in the lung) and chronic bronchitis (repeated infection and damage to larger airways). The cause is almost always cigarette smoking, although dust exposure, asthma, and infections contribute. You should avoid fumes, dust, and smoke (especially tobacco smoke). Your condition will flare from time to time. There is no cure, but the symptoms can be treated. Bronchodilators (asthma medicine) are often helpful. Antibiotics help when infection is present. When shortness of breath is severe, we may prescribe cortisone medication. If medicine doesn't help enough, we can arrange for you to have an oxygen tank at home. Notify your doctor at once if sputum becomes thick, foul, or bloody, if you develop a fever or chest pain, or if your shortness of breath worsens. Anxiety The physician feels that some of your health problems are being caused by anxiety. Anxiety affects your health in many ways. Anxiety alone can cause palpitations, sweats, chest pains, abdominal pains, shortness of breath, and headaches. It contributes to ulcer disease, high blood pressure, irritable bowel syndrome, and has been shown to cause flare-ups of many other diseases. Anxiety is not a simple disorder to treat. If the anxiety is due to recent life stresses, you may simply need time to "work through" the changes. If the anxiety is due to an underlying unhappiness with yourself or due to psychiatric disturbance, professional help will be needed. Your physician can refer you for further help if needed. Anti-anxiety medication is occasionally given if the stress is acute or if you are having trouble sleeping. Chronic or frequent use of these medications is not a good idea because the body becomes reliant on it, preventing you from dealing with life's normal stresses. Referrals: LISHA SEGOVIA, [Primary Care Provider] - Follow up as needed CHRISTINA CORADO MD [ACTIVE STAFF] - (In 2-3 days return for increased worsening or new symptoms) Scribe Attestation: 07/26/17 12:53 I personally performed the services described in the documentation reviewed the documentation recorded by my scribe in my presence and it accurately and completely records my words and actions (VENECIA TORRES) Scribe Documentation - Scribe Written by Archana:: archana Villafana, 07/26/2017,[id number] acting as scribe for :: Todd <KARELY ALFARO - Last Filed: 07/26/17 13:07>
[2017-07-26] MEDS ORDERED: LORAZEPAM 0.5 MG TABLET PO ONE (12:15)
[2017-07-26 13:17] VITALS: BP 105/73
--- NOTE | 2017-07-26 13:50 | ER Document Report ---
Doctor's Note Notes: 07/26/17 13:50 EKG shows sinus rhythm at 92 bpm with no acute ST segment elevation or depression
--- NOTE | 2017-07-26 22:06 | EKG REPORT ---
SEVERITY:- BORDERLINE ECG - SINUS RHYTHM BORDERLINE T ABNORMALITIES, INFERIOR LEADS : Confirmed by: Hakan Alvarez 26-Jul-2017 22:05:32
== END 2017-07-26 13:17 | disposition home or self-care (01) ==
LOC: ER 08:09
DX: J44.1 Chronic obstructive pulmonary disease with (acute) exacerbation (principal); R06.02 Shortness of breath; C64.9 Malignant neoplasm of unspecified kidney, except renal pelvis; C78.00 Secondary malignant neoplasm of unspecified lung; I10 Essential (primary) hypertension; Z88.0 Allergy status to penicillin; Z99.81 Dependence on supplemental oxygen; Z88.3 Allergy status to other anti-infective agents; Z88.6 Allergy status to analgesic agent
CPT/HCPCS: 93005; 99285; 36415; 82803; 82550; 85025; 80048; 84484; 83880; 71010; 93010; 36600; A9270

== ENCOUNTER → 2017-07-27 | Outpatient (CLI) | payer MEDICARE, MEDICAID ==
--- NOTE | 2017-07-27 12:57 | RADIOLOGY REPORT (SQ) ---
EXAM DESCRIPTION: MRA HEAD WITHOUT COMPLETED DATE/TIME: 07/27/2017 9:20 am REASON FOR STUDY: CEREBRAL ANERYSM, NONRUPTURED I67.1 CEREBRAL ANEURYSM, NONRUPTURED COMPARISON: MRI brain 07/21/2017 TECHNIQUE: Axial 3-D [id number] acquisition imaging performed through the brain in the area of t he red devil of [place]. Images reformatted using 3-D MIPS. LIMITATIONS: None. FINDINGS: On source image 89 through 96, a 4.3 mm saccular aneurysm projects off the medial aspect o f the left paraclinoid ICA, distal to the origin of the left ophthalmic artery. This is outside of t he cavernous sinus, projects into the suprasellar cistern. No other red devil of [place] aneurysms are identified. Patent posterior communicating arteries bilatera lly. The posterior circulation unremarkable. No red devil of [place] stenosis. IMPRESSION: Unruptured 4.3 mm saccular aneurysm off the medial aspect left para clinoid ICA. TECHNICAL DOCUMENTATION: JOB ID: [id number] [employer]- All Rights Reserved
== END ==
LOC: RAD 08:43
PROVIDERS: ATTEND Internal Medicine
DX: I67.1 Cerebral aneurysm, nonruptured (principal)
CPT/HCPCS: 70544

== ENCOUNTER 2017-08-04 12:13 | Outpatient (CLI) | payer MEDICARE, MEDICAID ==
[~2017-08-04 12:13] MED LIST: NIVOLUMAB 200 MG, NIVOLUMAB 40 MG in NORMAL SALINE 100 ML IV PRN; NORMAL SALINE 250 ML IV PRN
[2017-08-04 12:46] VITALS: BP 91/64
== END 2017-08-04 14:33 | disposition home or self-care (01) ==
LOC: II 12:13 → 5TH 12:44 → II 14:33
PROVIDERS: ATTEND Internal Medicine
PROC: 3E0330M Introduction of Antineoplastic, Monoclonal Antibody, into Peripheral Vein, Percutaneous Approach (ICD-10-PCS; principal; 2017-08-04)
DX: Z51.11 Encounter for antineoplastic chemotherapy (principal); C64.1 Malignant neoplasm of right kidney, except renal pelvis
CPT/HCPCS: 96413; J9299 ×2

== ENCOUNTER 2017-08-21 11:12 | Emergency (ER) | payer MEDICARE, MEDICAID ==
[2017-08-21] MEDS ORDERED: HYDROMORPHONE HCL INJ/PF 2 MG/ML AMPULE IV ONE (11:53)
[2017-08-21] MEDS ORDERED: ONDANSETRON HCL INJ/PF 4 MG/2 ML SDV IV ONE (11:53)
[2017-08-21 11:58] LABS: ABSOLUTE EOSINOPHILS # (AUTO) 0.1 10^3/uL (0.0-0.6); ABSOLUTE MONOCYTES (AUTO) 0.7 10^3/uL (0.1-1.4); BASOPHILS % (AUTO) 0.8 % (0-2); EOSINOPHILS % (AUTO) 2.9 % (0-6); HEMATOCRIT 34.3 % (36.0-47.0); HEMOGLOBIN 11.7 g/dL (12.0-15.5); HGB HCT DIFFERENCE 0.8; LYMPHOCYTES % (AUTO) 20.7 % (13-45); MEAN CORPUSCULAR HEMOGLOBIN 30.7 pg (27.0-33.4); MEAN CORPUSCULAR VOLUME 90 fl (80-97); MONOCYTES % (AUTO) 14.2 % (3-13); RED CELL DISTRIBUTION WIDTH 13.9 % (11.5-14.0); SEGMENTED NEUTROPHILS % (AUTO) 61.4 % (42-78); WHITE BLOOD COUNT 4.8 10^3/uL (4.0-10.5)
[2017-08-21 12:13] LABS: ALANINE AMINOTRANSFERASE 21 U/L (9-52); ALBUMIN 3.4 g/dL (3.5-5.0); ALKALINE PHOSPHATASE 71 U/L (38-126); ANION GAP 9 (5-19); ASPARTATE AMINO TRANSFERASE 45 U/L (14-36); BILIRUBIN,DIRECT 0.5 mg/dL (0.0-0.4); BILIRUBIN,TOTAL 0.7 mg/dL (0.2-1.3); BLOOD UREA NITROGEN 16 mg/dL (7-20); CALCIUM 9.3 mg/dL (8.4-10.2); CARBON DIOXIDE 32 mmol/L (22-30); CHLORIDE 100 mmol/L (98-107); CREATININE RESULT 0.81 mg/dL (0.52-1.25); GLUCOSE 98 mg/dL (75-110); POTASSIUM 4.3 mmol/L (3.6-5.0); SODIUM 141.4 mmol/L (137-145); TOTAL PROTEIN 6.1 g/dL (6.3-8.2)
[2017-08-21 12:15] LABS: ALCOHOL < 10 mg/dL (NONE DETECTED)
--- NOTE | 2017-08-21 12:40 | ER Document Report ---
ED General - General Chief Complaint: Other Stated Complaint: ANXIETY Time Seen by Provider: 08/21/17 11:18 Mode of Arrival: Medic Information source: Patient, Relative Notes: 61-year-old female who is on hospice history of kidney ca,lung ca, lung collapse presents with families concern of pain control and unable to care for her at home. pt noted to be on 9l nc at baseline sating anywhere from 70-90s, pt took off her oxygen and stated she doesnt want to live any more TRAVEL OUTSIDE OF THE [place] IN LAST 30 DAYS: No - HPI Onset: Last week Onset/Duration: Worse Quality of pain: Sharp Severity: Moderate Pain Level: 4 Associated symptoms: Shortness of breath Exacerbated by: Denies Relieved by: Denies Similar symptoms previously: Yes Recently seen / treated by doctor: Yes - Related Data Allergies/Adverse Reactions: codeine Allergy (Verified 07/26/17 08:14) erythromycin base Allergy (Verified 07/26/17 08:14) Penicillins Allergy (Verified 07/26/17 08:14) Past Medical History - Social History Smoking Status: Former Smoker Chew tobacco use (# tins/day): No Frequency of alcohol use: None Drug Abuse: None Family History: Reviewed & Not Pertinent - Past Medical History Cardiac Medical History: Reports: Hx Hypertension Pulmonary Medical History: Reports: Hx COPD Renal/ Medical History: Denies: Hx Peritoneal Dialysis Past Surgical History: Reports: Hx Abdominal Surgery - Immunizations Hx Diphtheria, Pertussis, Tetanus Vaccination: No Review of Systems - Review of Systems Notes: REVIEW OF SYSTEMS:admits to pain CONSTITUTIONAL : Denies fever, chills, or sweats. Denies recent illness. EENT: Denies eye, ear, throat, or mouth pain or symptoms. Denies nasal or sinus congestion or discharge. Denies throat, tongue, or mouth swelling or difficulty swallowing. CARDIOVASCULAR: Denies chest pain. Denies palpitations or racing or irregular heart beat. Denies ankle edema. RESPIRATORY: Denies cough, cold, or chest congestion. Denies shortness of breath, difficulty breathing, or wheezing. GASTROINTESTINAL: Denies abdominal pain or distention. Denies nausea, vomiting , or diarrhea. Denies blood in vomitus, stools, or per rectum. Denies black, tarry stools. Denies constipation. GENITOURINARY: Denies difficulty urinating, painful urination, burning, frequency, blood in urine, or discharge. FEMALE GENITOURINARY: Denies vaginal bleeding, heavy or abnormal periods, irregular periods. Denies vaginal discharge or odor. MUSCULOSKELETAL: Denies back or neck pain or stiffness. Denies joint pain or swelling. SKIN: Denies rash, lesions or sores. HEMATOLOGIC : Denies easy bruising or bleeding. LYMPHATIC: Denies swollen, enlarged glands. NEUROLOGICAL: Denies confusion or altered mental status. Denies passing out or loss of consciousness. Denies dizziness or lightheadedness. Denies headache. Denies weakness or paralysis or loss of use of either side. Denies problems with gait or speech. Denies sensory loss, numbness, or tingling. Denies seizures. PSYCHIATRIC: Denies anxiety or stress. Denies depression, suicidal ideation, or homicidal ideation. ALL OTHER SYSTEMS REVIEWED AND NEGATIVE. PHYSICAL EXAMINATION: GENERAL: ill appearing female HEAD: Atraumatic, normocephalic. EYES: Pupils equal round and reactive to light, extraocular movements intact, conjunctiva are normal. ENT: Nares patent, oropharynx clear without exudates. Moist mucous membranes. NECK: Normal range of motion, supple without lymphadenopathy LUNGS: very poor perfusion HEART: Regular rate and rhythm without murmurs ABDOMEN: Soft, nontender, nondistended abdomen. No guarding, no rebound. No masses appreciated. Female : deferred Musculoskeletal: Normal range of motion, no pitting or edema. No cyanosis. NEUROLOGICAL: Cranial nerves grossly intact. Normal speech, normal gait. Normal sensory, motor exams PSYCH: Normal mood, normal affect. SKIN: Warm, Dry, normal turgor, no rashes or lesions noted. Dictation was performed using [employer] voice recognition software Physical Exam - Vital signs Vitals: Pulse Ox 88 L 08/21/17 11:44 Course - Re-evaluation Re-evalutation: 08/21/17 12:40 Hospice and social welfare clerk have been consulted they will determine patient's placement 08/21/17 14:39 I spoke with he agrees with inpatient hospice plan 08/21/17 16:11 Hospice has arranged for patient's inpatient care I will discharge at this time to go to hospice - Vital Signs Vital signs: Temp Pulse Resp BP Pulse Ox 98 103/65 88 L 08/21/17 13:11 08/21/17 12:00 08/21/17 11:44 - Laboratory Result Diagrams: 08/21/17 11:40 08/21/17 11:40 Laboratory results interpreted by me: 08/21/17 08/21/17 11:40 11:40 Hgb 11.7 L Hct 34.3 L Monocytes % 14.2 H Carbon Dioxide 32 H Direct Bilirubin 0.5 H AST 45 H Total Protein 6.1 L Albumin 3.4 L Salicylates < 1.0 L Acetaminophen < 10 L Discharge - Discharge Clinical Impression: DNR (do not resuscitate), Hospice care Condition: Critical Disposition: HOSPICE CENTER Referrals: LISHA SEGOVIA DO [Primary Care Provider] - Follow up as needed
[2017-08-21] MEDS: HYDROMORPHONE HCL INJ/PF 2 MG/ML AMPULE IV SCH ×2 (14:44→16:35)
[2017-08-21] MEDS ORDERED: ONDANSETRON HCL INJ/PF 4 MG/2 ML SDV IV SCH (16:00)
[2017-08-21 16:44] VITALS: BP 115/54
--- NOTE | 2017-08-21 19:33 | EKG REPORT ---
SEVERITY:- ABNORMAL ECG - SINUS RHYTHM ABNORMAL T, CONSIDER ISCHEMIA, ANTERIOR LEADS, new compared to 07/26/17 EKG : Confirmed by: Costa Castellanos MD 21-Aug-2017 19:32:43
== END 2017-08-21 16:35 | disposition hospice, inpatient (51) ==
LOC: ER 11:12
DX: R52 Pain, unspecified (principal); J44.9 Chronic obstructive pulmonary disease, unspecified; I10 Essential (primary) hypertension; Z51.5 Encounter for palliative care; Z66 Do not resuscitate; Z85.118 Personal history of other malignant neoplasm of bronchus and lung; Z85.528 Personal history of other malignant neoplasm of kidney; Z88.5 Allergy status to narcotic agent; Z88.1 Allergy status to other antibiotic agents; Z88.0 Allergy status to penicillin; Z87.892 Personal history of anaphylaxis
CPT/HCPCS: 93005; 96376; 99284; 96374; 96375; 36415; 80307 ×3; 85025; 80053; 93010; J1170; J2405